=== PATIENT | female | born 1970 | race Caucasian/White ===

== ENCOUNTER 2020-05-18 10:52 | Observation (INO) | payer OTHER ==
[~2020-05-18] VITALS: Ht 170.2 cm; Wt 138.0 kg
[2020-05-18] MEDS ORDERED: XYZAL5 MG PO (11:04)
[2020-05-18] MEDS ORDERED: MULTI VITAMINS1 TAB PO (11:05)
[2020-05-18 11:57] LABS: EOS # 0.1 (0.04-0.40); EOS % 1.1 % (1.0-5.0); HEMATOCRIT 47.3 % (37.0-47.0); HEMOGLOBIN 15.3 g/dL (12.5-16.0); LYMPH# 1.6 (1.50-4.00); MEAN CELL VOLUME 88 fl (78-100); MEAN CORPUSCULAR HEMOGLOBIN 29 pg (27-31); MEAN CORPUSCULAR HGB CONC 32 g/dL (33-37); MEAN PLATELET VOLUME 10.1 fl (7.4-10.4); MONO # 0.3 (0.20-0.80); NEU # 5.1 (1.40-6.50); PLATELET COUNT 229 K/mm3 (130-400); RED BLOOD COUNT 5.37 M/mm3 (4.10-5.30); RED CELL DISTRIBUTION WIDTH 13.5 % (11.5-14.5); WHITE BLOOD COUNT 7.1 K/mm3 (4.8-10.8)
[2020-05-18 11:59] LABS: ALBUMIN 4.2 g/dL (3.5-5.0); POTASSIUM 4.3 mmol/L (3.5-5.1)
[2020-05-18 12:01] LABS: CALCIUM 9.5 mg/dL (8.3-10.5)
[2020-05-18 12:02] LABS: TOTAL PROTEIN 7.2 g/dL (6.4-8.3)
[2020-05-18 12:04] LABS: TOTAL BILIRUBIN 0.7 mg/dL (0.2-1.2)
[2020-05-18 12:41] LABS: URINE APPEARANCE CLEAR; URINE BILIRUBIN NEGATIVE (NEGATIVE); URINE BLOOD NEGATIVE (NEGATIVE); URINE COLOR YELLOW; URINE GLUCOSE NEGATIVE (NEGATIVE); URINE KETONE NEGATIVE (NEGATIVE); URINE LEUKOCYTE ESTERASE TRACE (NEGATIVE); URINE NITRATE NEGATIVE (NEGATIVE); URINE PROTEIN(semi-quant) NEGATIVE (NEGATIVE); URINE UROBILINOGEN NORMAL (NORMAL)
[2020-05-18 12:42] LABS: URINE MUCUS PRESENT (NOT PRESENT)
[2020-05-18 14:20] VITALS: BP 170/95
[2020-05-18 14:46] VITALS: BP 170/95
[2020-05-18 17:22] VITALS: BP 153/89
[2020-05-18 18:08] VITALS: BP 153/89
[2020-05-18 21:37] VITALS: BP 147/75
[2020-05-19 06:24] VITALS: BP 122/81
[2020-05-19 10:00] VITALS: BP 138/82
[2020-05-19 12:52] VITALS: BP 119/80
[2020-05-19] MEDS ORDERED: ACETAMINOPHEN-O1 TAB PO (16:13)
[2020-05-19] MEDS ORDERED: ZOFRAN ODT4 MG PO (16:13)
[2020-05-19] MEDS ORDERED: SEPTRA DS 8001 TAB PO (16:14)
[2020-05-19] MEDS ORDERED: PERCOCET 325 MG1 TA2 PO (17:19)
== END 2020-05-19 17:32 | disposition home or self-care (01) ==
LOC: ED 10:52 → MED/SURG 14:16
PROVIDERS: ADMIT Nurse Practitioner Primary Care
DX: N20.2 Calculus of kidney with calculus of ureter (principal)
CPT/HCPCS: G0378; J1885; J2270; J2405; J2550; J3490; J7030; Q9967

== ENCOUNTER → 2021-05-29 | Outpatient (CLI) | payer OTHER ==
[~2021-05-29] MED LIST: ACETAMINOPHEN-O1 TAB PO; MULTI VITAMINS1 TAB PO; PERCOCET 325 MG1 TA2 PO; SEPTRA DS 8001 TAB PO; XYZAL5 MG PO; ZOFRAN ODT4 MG PO
== END ==
LOC: VAS 15:24
DX: Z13.6 Encounter for screening for cardiovascular disorders (principal); M79.652 Pain in left thigh